=== PATIENT | male | born 1980 | race Caucasian/White ===

== ENCOUNTER 2017-06-18 23:38 | Emergency (ER) | payer SELFPAY ==
[~2017-06-18] VITALS: Ht 180.3 cm; Wt 94.0 kg
[2017-06-18 23:40] VITALS: BP 141/59; PULSE 96; RESP 16; TEMP 98.6; O2SAT 98
[2017-06-19 01:49] VITALS: BP 122/68; PULSE 86; RESP 18; O2SAT 99
--- NOTE | 2017-06-19 02:30 | PD ---
HPI Chief Complaint: Pain: Acute or Chronic Time Seen by Provider: 02:10 Travel History International Travel<30 days: No Contact w/Intl Traveler<30days: No Traveled to known affect area: No History of Present Illness HPI The patient is a 36 year old male who presents to the [facility] emergency department with a history of knee pain that recurred between 5 and 6 PM today. He reports that he turned and his knees seem to lock and the flexed position. He reports that he has been able to stretch it out since then, however there continues to be pain along the medial aspect of the right knee. The patient reports that a month ago he injured his knee when he fell onto the lateral aspect of the knee. He reports that at that time his entire knee hurt. He did follow up with an urgent care center at another facility regarding this. He denies any imaging being done. He reports that the pain slowly improved until today. He denies having any fevers or chills. He denies having any weight loss or night sweats. He denies having any swelling of the right knee. He reports that the pain is sharp in character with intermittent throbbing. He reports that it feels like it gets locked in position and it pops occasionally. On review of systems, he denies any recent cough, congestion, neck pain, chest pain, shortness of breath, abdominal pain, vomiting, diarrhea, urinary symptoms, or neurologic symptoms. [facility] Past Medical History Narrative Medical The patient's past medical history is reportedly none. Medical History: Denies Significant Hx Tetanus Vaccination: < 5 Years Influenza Vaccination: Yes Past Surgical History Narrative Surgical The patient's past surgical history is reportedly None. Surgical History: No Previous Surgery Social History Alcohol Use: No Tobacco Use: Yes (black and mild 1 per day) Substance Use: No Allergies-Medications (Allergen,Severity, Reaction): Coded Allergies: Penicillins (Verified Allergy, Unknown, 06/19/17) Reported Meds & Prescriptions Reported Meds & Active Scripts Active No Active Prescriptions or Reported Medications Narrative Medication None. Review of Systems Except as stated in HPI: all other systems reviewed are Neg General / Constitutional: No: Fever Eyes: No: Visual changes HENT: No: Headaches Cardiovascular: No: Chest Pain or Discomfort Respiratory: No: Shortness of Breath Gastrointestinal: No: Abdominal Pain Genitourinary: No: Dysuria Musculoskeletal: Positive: Myalgias, Arthralgias, Limited ROM, Pain Skin: No Rash Neurologic: No: Weakness Psychiatric: No: Depression Endocrine: No: Polydipsia Hematologic/Lymphatic: No: Easy Bruising Physical Exam Narrative General: The patient is a well-developed well-nourished male in no acute distress. Head and Neck exam: Head is normocephalic atraumatic. Eyes: EOMI, pupils are equal round and reactive to light. Nose: Midline septum with pink mucous membranes Mouth: Dentition unremarkable. Moist mucus membranes. Posterior oropharynx is not erythematous. No tonsillar hypertrophy. Uvula midline. Airway patent. Neck: No palpable lymphadenopathy. No nuchal rigidity. No thyromegaly. Cardiovascular: Regular rate and rhythm without murmurs, gallops, or rubs. Lungs: Clear to auscultation bilaterally. No wheezes, rhonchi, or rales. Abdomen: Soft, without tenderness to palpation in all 4 quadrants of the abdomen. No guarding, rebound, or rigidity. Normal bowel sounds are audible. No tenderness on palpation of McBurney's point. Extremities: No clubbing, cyanosis, or edema. 2+ pulses in all 4 extremities. The area of interest is the right knee. The patient reports having tenderness on palpation along the medial aspect of the right knee. The patient has no effusion. No ballotable patella. No erythema. No loss of range of motion with flexion and extension, however he does have tenderness on palpation of the medial joint line and the proximal tibia. There is no ecchymosis. There is no warmth on palpation. No ligament laxity medially or laterally or with anterior and posterior drawer examination. Back: No costovertebral angle tenderness to palpation. Neurologic Exam: Grossly nonfocal. Skin Exam: No rash noted. Intact skin that is warm and dry. Data Data Last Documented VS Vital Signs Date Time Temp Pulse Resp B/P (MAP) Pulse Ox O2 Delivery O2 Flow Rate FiO2 06/19/17 01:49 86 18 122/68 (86) 99 Room Air 06/18/17 23:40 98.6 Orders Orders Knee, Complete (4vws) (06/19/17 02:30) Ice/Cold Pack (06/19/17 02:30) Ibuprofen (Motrin) (06/19/17 02:45) Splint Or Brace Apply/Monitor (06/19/17 03:16) [facility] Medical Decision Making Medical Screen Exam Complete: Yes Emergency Medical Condition: Yes Medical Record Reviewed: Yes Interpretation(s) Last Impressions Knee X-Ray 06/19/17 0230 Signed Impressions: Service Date/Time: Monday, June 19, 2017 02:45 - CONCLUSION: No right knee abnormality is identified. Neil Cm MD Differential Diagnosis Cartilaginous injury of the knee, versus ligamentous injury, versus fracture, versus tendinitis Narrative Course During the course of the patients emergency department visit, the patients history, examination, and differential diagnosis were reviewed with the patient. The patient had an x-ray of the right knee ordered. The patient was initially provided ibuprofen by mouth. Radiology studies were reviewed and remarkable for a right knee x-ray that shows no acute abnormality. As the patient reports having popping and intermittent locking of his knee, the patient will be provided a knee immobilizer. The patient was instructed regarding the possibility of him having internal damage to the knee including a cartilaginous injury that would not show up on x-ray. I recommended that he follow up with an orthopedic physician. If he continues to have symptoms and MRI of the knee would be indicated as an outpatient. The patient will be discharged home with a prescription for an anti-inflammatory pain medication. The patient is resting comfortably and feels better, is alert and in no distress. The patients results and examination findings were discussed with the patient. The repeat examination is unremarkable and benign. The history, exam, diagnostic testing, and current condition do not suggest any significant pathology to warrant further testing, continued ED treatment, admission, or surgical evaluation at this point. The vital signs have been stable. The patient does not have uncontrollable pain, intractable vomiting, or other significant symptoms. The patient's condition is stable and appropriate for discharge. The patient will pursue further outpatient evaluation with a primary care physician or other designated or consulting physician as indicated in the discharge instructions. The patient expressed understanding and was agreeable with this plan. Diagnosis Primary Impression: Knee pain, right Qualified Codes: M25.561 - Pain in right knee Referrals: Dillon Judd MD 1 week Patient Instructions: General Instructions, Knee Pain (ED) Med/Other Pt SpecificInfo: Prescription(s) given Scripts Meloxicam (Mobic) 7.5 Mg Tab 7.5 MG PO DAILY for Pain for 14 Days, TAB 0 Refills Prov: Aspen Chung MD 06/19/17 Disposition: 01 DISCHARGE HOME Condition: Stable Aspen Chung MD Jun 19, 2017 02:30
[2017-06-19] MEDS ORDERED: IBUPROFEN 600 MG TAB PO ONE (02:45)
--- NOTE | 2017-06-19 03:27 | RADRPT ---
EXAM DATE/TIME: 06/19/2017 02:45 [facility] COMPARISON: No previous studies available for comparison. INDICATIONS : Knee pain. MEDICAL HISTORY : None. SURGICAL HISTORY : None. ENCOUNTER: Initial ACUITY: 1 day PAIN SCORE: 0/10 LOCATION: Right knee FINDINGS: Four views of the right knee demonstrate no fracture or dislocation. No joint effusion is present. Th ere is no significant arthropathy and mineralization is within normal limits. No soft tissue abnormal ity or radiopaque foreign body is identified. CONCLUSION: No right knee abnormality is identified. Neil Cm MD on June 19, 2017 at 3:25 Board Certified Radiologist. This report was verified electronically.
[2017-06-19] MEDS ORDERED: MOBI7.5T PO (03:51)
== END 2017-06-19 04:23 | disposition home or self-care (01) ==
LOC: NEPC 23:38
DX: M25.561 Pain in right knee (principal)
CPT/HCPCS: 73564; 99283; L1830